=== PATIENT | male | born 1960 | race Caucasian/White ===

== ENCOUNTER → 2019-10-12 15:03 | Outpatient (BNVA) | payer MEDICARE, SELFPAY | PROVIDERS: Visit Provider Psychiatry & Neurology Psychiatry | DX: F39 Unspecified mood [affective] disorder (principal); E63.9 Nutritional deficiency, unspecified; E55.9 Vitamin D deficiency, unspecified; E53.8 Deficiency of other specified B group vitamins; F33.9 Major depressive disorder, recurrent, unspecified; F41.9 Anxiety disorder, unspecified; Z00.8 Encounter for other general examination; F07.81 Postconcussional syndrome; R41.89 Other symptoms and signs involving cognitive functions and awareness; R46.89 Other symptoms and signs involving appearance and behavior; F09 Unspecified mental disorder due to known physiological condition; F07.89 Other personality and behavioral disorders due to known physiological condition | CPT/HCPCS: 99205 ==

== ENCOUNTER 2019-10-25 08:23 | Outpatient (CLI) | payer MEDICARE, SELFPAY ==
[2019-10-25 09:13] LABS: Basophils % 0.6 %; Eosinophils # 0.2 10^3/uL (0.0-0.8); Eosinophils % 2.9 %; Hematocrit 47.3 % (42.0-52.0); Hemoglobin 15.2 g/dL (11.7-16.6); Lymphocytes # 1.5 10^3/uL (0.8-4.8); Lymphocytes % 21.9 %; Mean Corpuscular HGB Conc 32.1 g/dL (30.0-36.0); Mean Corpuscular Hemoglobin 27.3 pg (28.0-34.0); Mean Corpuscular Volume 85.1 fL (80-94); Monocytes # 0.5 10^3/uL (0.2-0.9); Monocytes % 7.7 %; Neutrophils # 4.4 10^3/uL (1.8-7.7); Neutrophils % 66.4 %; Nucleated Red Blood Cells % 0 %; Platelet Count 236 10^3/cmm (130-400); Red Blood Count 5.56 10^6/uL (4.1-5.3); Red Cell Distribution Width 13.3 % (12.1-15.1); White Blood Count 6.7 10^3/uL (4.0-10.0)
[2019-10-25 09:37] LABS: Alanine Aminotransferase 82 U/L (0-41); Albumin Level 4.3 g/dL (3.5-5.2); Alkaline Phosphatase 96 IU/L (40-130); Anion Gap 13.8 (5-19); Aspartate Amino Transferase 45 U/L (0-40); Blood Urea Nitrogen 15 mg/dL (6-20); Calcium 9.3 mg/dL (8.5-10.5); Carbon Dioxide 30 mmol/L (22-29); Chloride 100 mmol/L (98-107); Chol HDL Ratio 6.56 mg/dL (1.0-5.00); Cholesterol 256 mg/dL (0-200); Free T4 Free Thyroxine 1.23 ng/dL (0.82-1.77); Globulin 2.8 g/dL (1.3-4.6); Glucose 100 mg/dL (65-115); HDL Cholesterol 39 mg/dL (60-100); LDL Cholesterol Calculated 183 mg/dL (50-129); LDL HDL Ratio 4.69 RATIO (0.00-3.22); Magnesium 2.4 mg/dL (1.7-2.3); Osmolality Calculated 284 mOsm/kg (285-295); Potassium 4.8 mmol/L (3.5-5.1); Sodium 139 mmol/L (136-145); T3 Free 3.1 PG/ML (2.0-4.4); Total Bilirubin 0.4 mg/dL (0.15-1.2); Total Protein 7.1 g/dL (6.6-8.7); Triglycerides 168 mg/dL (0-150)
[2019-10-25 09:58] LABS: Folate Level 12.2 ng/mL (4.5-32.2)
[2019-10-25 10:24] LABS: 25 Hydroxy Vitamin D 36 ng/mL (30-100); Thyroid Stimulating Hormone 0.85 uIU/mL (0.27-4.20); Vitamin B12 428 pg/mL (232-1245)
[2019-10-26 19:05] LABS: T3 Total 111 ng/dL (76-181)
[2019-10-29 10:06] LABS: Zinc Level, Serum or Plasma 83 mcg/dL (60-130)
[2019-11-01 20:51] LABS: Copper Level 100 mcg/dL (70-175)
[2019-11-06 12:51] LABS: Amphetamine negative; Barbiturates negative; Benzodiazepines negative; Cocaine Metabolites negative; Codeine negative; Delta 9 THC negative; Delta 9 THC Carboxy Acid 48 ng/mL; Hydrocodone 76 ng/mL; Hydromorphone negative; Marijuana(Tetrahydrocannabino) POSITIVE; Morphine negative; Opiates POSITIVE; PCP (Phencyclidine) negative
== END 2019-10-25 08:24 | disposition home or self-care (01) ==
LOC: LAB 08:32
PROVIDERS: Visit Provider Psychiatry & Neurology Psychiatry
DX: F39 Unspecified mood [affective] disorder (principal); E63.9 Nutritional deficiency, unspecified; E55.9 Vitamin D deficiency, unspecified; E53.8 Deficiency of other specified B group vitamins; F33.9 Major depressive disorder, recurrent, unspecified; F41.9 Anxiety disorder, unspecified
CPT/HCPCS: 36415; 80053; 80061; 82306; 82525; 82607; 82746; 83735; 84439; 84443; 84480; 84481; 84630; 85025

== ENCOUNTER → 2019-10-26 08:33 | Outpatient (BNVA) | payer MEDICARE, SELFPAY | PROVIDERS: Visit Provider Nurse Practitioner Psychiatric/Mental Health | DX: F33.9 Major depressive disorder, recurrent, unspecified (principal); F41.9 Anxiety disorder, unspecified; F43.12 Post-traumatic stress disorder, chronic | CPT/HCPCS: 99213 ==

== ENCOUNTER → 2019-11-20 07:36 | Outpatient (BNVA) | payer MEDICARE, SELFPAY | PROVIDERS: Visit Provider Nurse Practitioner Psychiatric/Mental Health | DX: F33.9 Major depressive disorder, recurrent, unspecified (principal); F41.9 Anxiety disorder, unspecified; G89.29 Other chronic pain | CPT/HCPCS: 99212 ==

== ENCOUNTER → 2021-06-12 15:35 | Outpatient (BNVA) | payer MEDICARE, SELFPAY | PROVIDERS: PCP Family Medicine; Visit Provider Urology | DX: S39.94XA Unspecified injury of external genitals, initial encounter (principal); X58.XXXA Exposure to other specified factors, initial encounter | CPT/HCPCS: 81003 ==

== ENCOUNTER 2022-01-06 15:42 | Emergency (ER) | payer MEDICARE, MEDICAID, SELFPAY ==
[2022-01-06 15:53] VITALS: BP 156/108; PULSE 82; RESP 16; TEMP 36.2; O2SAT 100; BMI 22.1
[2022-01-06 16:00] VITALS: BP 130/88; PULSE 85; RESP 17; O2SAT 100
--- NOTE | 2022-01-06 16:27 | W.ED.GENADLT ---
HPI - General Adult General: Chief complaint: Allergic Reaction Stated complaint: ALLERGIC REACTION Time Seen by Provider: 01/06/22 16:01 History of Present Illness: Patient is a 69-year-old male presenting to the emergency room after patient received a COVID shot with concerns of lightheadedness and dyspnea. Patient tells me shortly after receiving COVID shot he did not feel right. This incidnet was seen at the pharmacy and multiple witnesses reported patient weas shortness of breath. A rapid response was called and patient was brought to the emergency room. On arrival, patient reports shortness of breath but denies any swelling in the throat, difficulty breathing, drooling, or voice change. Patient denies any hives or rash on the body. Patient has no known allergies Onset:1 hr ago Duration:ongoing Location:home Severity:moderate Associated symptoms: Reports dyspnea; Deny chest pain, nausea, rash, palpitations or vomiting Review of Systems Const: Denies: fever(s) or chills Eyes: Denies: change in vision ENMT: Denies: mouth pain Card: Denies: chest pain or palpitations Resp: Reports: dyspnea; Denies: non-productive cough GI: Denies: abdominal pain, nausea, vomiting or diarrhea : Denies: dysuria Musc: Denies: extremity pain Skin/Breast: Denies: rash or new lesions Neuro: Reports: other (+near syncope, +light-headedness); Denies: weakness in extremities Psych: Reports: other (Normal mood) Luis/Lymph: Denies: easy bruising PFSH ED PFSH: Medical History Chronic pain Family History Father , at age 81 CAD (coronary artery disease) Mother Anxiety Social History Smoking and tobacco status: never smoked Alcohol intake: current Alcohol intake frequency: few times a month Marital status: / Current occupational status: retired History of recent travel: No Current gender identity: Male Physical Exam Const: COMMON NORMALS: alert HENMT: COMMON NORMALS: atraumatic HEAD & SCALP: atraumatic MOUTH: moist mucous membranes not abnormal Eye: COMMON NORMALS: EOMs intact bilaterally and conjunctivae normal CONJUNCTIVA: Yes conjunctivae normal Neck/C-Spine: COMMON NORMALS: full ROM and supple Resp: COMMON NORMALS: normal respiratory effort and clear to auscultation bilaterally AUSCULTATION: clear to auscultation bilaterally Cardio: COMMON NORMALS: regular rate RATE: regular rate GI: COMMON NORMALS: Soft to palpation and non-tender PALPATION: Yes Soft to palpation OTHER: No focal TTP. NO guarding rebound, guarding, rigidity. No CVA tenderness to percussion. Neg Santiago/Neg McBurney's point tenderness, no suprabupic tenderness to palpation. Extremity: COMMON NORMALS: full ROM Neuro: SENSORIUM/ORIENTATION: Yes alert MOTOR EXAM: No Abnormal motor strength present and Other motor observations present (no focal motor deficits) Psych: COMMON NORMALS: speech normal SPEECH: Yes normal speech MOOD & AFFECT: Yes euthymic mood Course Vital Signs: Vital signs: Vital Signs Temperature 97.1 F L 01/06/22 15:53 Pulse Rate 82 01/06/22 15:53 Respiratory Rate 16 01/06/22 15:53 Blood Pressure 156/108 01/06/22 15:53 Pulse Oximetry 100 01/06/22 15:53 Oxygen Delivery Me thod 01/06/22 15:53 MDM - General Adult Medical Decision Making 61-year-old male presenting to emergency room with concerns of shortness of breath and lightheadedness after the COVID-vaccine. On arrival, patient is hemodynamically stable, no signs of respiratory distress or airway compromise. Patient has no coarse breath sounds, wheezes or rhonchi in the lung valladares. Patient to be satting well greater than 95%. Patient received Benadryl and Pepcid, prednisone. Patient also received IVF. Patient reports symptomatically improved after receiving these medications and after prolonged period observation. Rx pepcid and benadryl for allergic reactions Disposition: Discharge. Patient counseled regarding diagnostic impression, treatment plan. Patient given ED strict return precautions to return for continuation, worsening, or development of new symptoms. Instructed to f/u w/ PCP regarding symptoms today. Patient verbalized understanding. Lab Data : 01/06/22 15:45 01/06/22 15:45 Laboratory Results WBC 11.7 10^3/uL (4.0-10.0) H 01/06/22 15:45 RBC 5.20 10^6/uL (4.1-5.3) 01/06/22 15:45 Hgb 14.5 g/dL (11.7-16.6) 01/06/22 15:45 Hct 44.8 % (42.0-52.0) 01/06/22 15:45 MCV 86.2 fl (80-94) 01/06/22 15:45 MCH 27.9 pg (28.0-34.0) L 01/06/22 15:45 MCHC 32.4 g/dL (30.0-36.0) 01/06/22 15:45 RDW 14.3 % (12.1-15.1) 01/06/22 15:45 Plt Count 258 10^3/cmm (130-400) 01/06/22 15:45 MPV 10.5 fL (7.4-10.4) H 01/06/22 15:45 Neut % (Auto) 42.7 % 01/06/22 15:45 Lymph % (Auto) 45.2 % 01/06/22 15:45 [place] % (Auto) 9.1 % 01/06/22 15:45 Eos % (Auto) 2.4 % 01/06/22 15:45 Baso % (Auto) 0.4 % 01/06/22 15:45 Neut # (Auto) 5.01 10^3/uL (1.8-7.7) 01/06/22 15:45 Lymph # (Auto) 5.3 10^3/uL (0.8-4.8) H 01/06/22 15:45 [place] # (Auto) 1.1 10^3/uL (0.2-0.9) H 01/06/22 15:45 Eos # (Auto) 0.3 10^3/uL (0.0-0.8) 01/06/22 15:45 Baso # (Auto) 0.1 10^3/uL (0.0-0.1) 01/06/22 15:45 Nucleated RBC % (auto) 0 % 01/06/22 15:45 Nucleated RBCs # 0.0 /100WBC 01/06/22 15:45 Sodium 139 mmol/L (136-145) 01/06/22 15:45 Potassium 4.3 mmol/L (3.5-5.1) 01/06/22 15:45 Chloride 103 mmol/L (98-107) 01/06/22 15:45 Carbon Dioxide 25 mmol/L (22-29) 01/06/22 15:45 Anion Gap 15.3 (5-19) 01/06/22 15:45 BUN 16 mg/dL (8-23) 01/06/22 15:45 Creatinine 0.8 mg/dL (0.7-1.2) 01/06/22 15:45 GFR Calculation 98.6 mL/min (90-130) 01/06/22 15:45 Glucose 101 mg/dL (65-115) 01/06/22 15:45 Calculated Osmolality 289 mOsm/kg (285-295) 01/06/22 15:45 Calcium 9.4 mg/dL (8.5-10.5) 01/06/22 15:45 Discharge Plan Discharge Patient Disposition: Home Clinical Impression: Allergic reaction Condition: Stable Prescriptions: New Allergy Medication 25 mg capsule 25 mg PO Q8H PRN (Reason: allergic reaction) Qty: 9 0RF Pepcid 20 mg tablet 20 mg PO BID PRN (Reason: allergic reaction) 5 Days Qty: 10 0RF No Action lisinopril 10 mg tablet 10 mg PO DAILY metoprolol succinate 50 mg tablet extended release 24 hr 50 mg PO DAILY tizanidine 4 mg capsule 4 mg PO TID PRN omeprazole 40 mg capsule,delayed release(DR/EC) 40 mg PO DAILY venlafaxine 75 mg tablet 75 mg PO BID mecobalamin (vitamin B12) 1,000 mcg tablet,chewable 1,000 mcg PO DAILY testosterone cypionate [Depo-Testosterone] 100 mg/mL oil 100 mg SUBCUT .every 2 weeks sildenafil 100 mg tablet 100 mg PO DAILY PRN Rx Instructions: administer 30 minutes to 4 hours before activity zinc 50 mg tablet 50 mg PO DAILY Qty: 30 0RF hydrocodone-acetaminophen 10-325 mg tablet 1 tab PO BID PRN Discharge Orders: Discharge ED (Routine); Ordered 01/06/22 Ordered By: Fe Gupta Referrals: Ti Culp [Primary Care Provider] - Discharge Diet: Advance as tolerated Discharge Activity: Increase activity as tolerated Patient Instructions: Allergies (ED) Activity Restrictions/Additional Instructions: Come back if you have any new or concerning issues. Coding Level of Care Code ED Community Outreach Specialist for Chg Fwd Exam Comprehensive
[2022-01-06] MEDS: predniSONE 20 mg Tablet 60 MG PO (16:52)
[2022-01-06] MEDS: famotidine 20 mg Tablet 40 MG PO (16:52)
[2022-01-06] MEDS: sodium chloride 0.9% 1,000 ML 999 ML IV (16:52)
[2022-01-06] MEDS: diphenhydrAMINE 50 mg Capsule PO (16:53)
[2022-01-06 16:55] LABS: Basophils # 0.1 10^3/uL (0.0-0.1); Basophils % 0.4 %; Eosinophils # 0.3 10^3/uL (0.0-0.8); Eosinophils % 2.4 %; Hematocrit 44.8 % (42.0-52.0); Hemoglobin 14.5 g/dL (11.7-16.6); Lymphocytes # 5.3 10^3/uL (0.8-4.8); Lymphocytes % 45.2 %; Mean Corpuscular HGB Conc 32.4 g/dL (30.0-36.0); Mean Corpuscular Hemoglobin 27.9 pg (28.0-34.0); Mean Corpuscular Volume 86.2 fl (80-94); Mean Platelet Volume 10.5 fL (7.4-10.4); Monocytes # 1.1 10^3/uL (0.2-0.9); Monocytes % 9.1 %; Neutrophils # 5.01 10^3/uL (1.8-7.7); Neutrophils % 42.7 %; Nucleated Red Blood Cells % 0 %; Platelet Count 258 10^3/cmm (130-400); Red Cell Distribution Width 14.3 % (12.1-15.1); White Blood Count 11.7 10^3/uL (4.0-10.0)
[2022-01-06 17:00] VITALS: BP 156/97; PULSE 67; RESP 12; O2SAT 100
[2022-01-06 17:18] LABS: Blood Urea Nitrogen 16 mg/dL (8-23); Calcium 9.4 mg/dL (8.5-10.5); Carbon Dioxide 25 mmol/L (22-29); Chloride 103 mmol/L (98-107); Glomerular Filtration Rate 98.6 mL/min (90-130); Glucose 101 mg/dL (65-115); Osmolality Calculated 289 mOsm/kg (285-295); Slide Review Slide Review Perform; Sodium 139 mmol/L (136-145)
[2022-01-06 17:51] LABS: Anion Gap 15.3 (5-19); Potassium 4.3 mmol/L (3.5-5.1)
[2022-01-06 18:00] VITALS: BP 134/94; PULSE 74; RESP 17
[2022-01-06 18:58] VITALS: BP 119/80; O2SAT 100
== END 2022-01-06 18:56 | disposition home or self-care (01) ==
PROVIDERS: Emergency Provider Emergency Medicine; PCP Family Medicine
DX: T78.40XA Allergy, unspecified, initial encounter (principal)
CPT/HCPCS: 80048; 85025; 96360; 99284; J7030; J7512; Q0163

== ENCOUNTER 2022-02-18 12:36 | Outpatient (CLI) | payer MEDICARE, MEDICAID, SELFPAY ==
--- NOTE | 2022-02-18 12:44 | XR_ITS ---
WS: [id number], AP view, 02/18/2022 Clinical Data: N20.0 - Calculus of kidney Comparison: CT abdomen and pelvis, 02/04/2022 Findings: No abnormal intraabdominal masses or calcifications are seen. There is no dilatated small bowel or ev idence of obstruction. There is a large amount of fecal material throughout the colon. There are clips in the right upper qu adrant from a cholecystectomy. XR/XR KUB [id number] Impression: Large amount of fecal material in the colon.
== END 2022-02-18 12:37 | disposition home or self-care (01) ==
LOC: RAD 12:37
PROVIDERS: PCP Family Medicine; Visit Provider Urology
DX: N40.1 Benign prostatic hyperplasia with lower urinary tract symptoms (principal); N41.9 Inflammatory disease of prostate, unspecified; R59.0 Localized enlarged lymph nodes; N20.0 Calculus of kidney; S39.94XA Unspecified injury of external genitals, initial encounter
CPT/HCPCS: 51741; 51798; 74018; 99213

== ENCOUNTER → 2022-02-23 09:13 | Outpatient (BNVA) | payer MEDICARE, MEDICAID, SELFPAY | PROVIDERS: PCP Family Medicine; Visit Provider Nurse Practitioner Family | DX: N40.1 Benign prostatic hyperplasia with lower urinary tract symptoms (principal); N20.0 Calculus of kidney; N41.9 Inflammatory disease of prostate, unspecified; R59.0 Localized enlarged lymph nodes; S39.94XA Unspecified injury of external genitals, initial encounter | CPT/HCPCS: 81003 ==